=== PATIENT | female | born 1975 | race Caucasian/White ===

== ENCOUNTER 2019-04-15 17:39 | Emergency (ER) | payer MEDICAID ==
[~2019-04-15] VITALS: Ht 157.5 cm; Wt 90.0 kg
[~2019-04-15 17:39] MED LIST: CYCL-1 PO; NO HOME MEDS
[2019-04-15 18:34] LABS: BASOPHILS % (AUTO) 0.2 % (0-1); EOSINOPHILS % (AUTO) 0.2 % (0-6); HEMOGLOBIN 15.4 g/dl (12.0-16.0); LYMPHOCYTES # (AUTO) 0.4 X10'3 (1.1-4.8); LYMPHOCYTES % (AUTO) 2.9 % (21-51); MEAN CORPUSCULAR HEMOGLOBIN 30.7 PG (27.0-31.0); MEAN CORPUSCULAR HGB CONC 34.2 g/dL (33.0-36.5); MEAN CORPUSCULAR VOLUME 89.9 FL (78-98); MEAN PLATELET VOLUME 9.5 FL (7.4-10.4); MONOCYTES # (AUTO) 0.4 X10'3 (0-0.9); MONOCYTES % (AUTO) 2.9 % (2-12); NEUTROPHILS # (AUTO) 12.1 X10'3 (1.8-7.7); NEUTROPHILS % (AUTO) 93.8 % (42-75); PLATELET COUNT 290 X10'3 (140-440); RED BLOOD COUNT 5.01 X10'6 (4.20-5.60); RED CELL DISTRIBUTION WIDTH 13.8 % (11.5-14.5); WHITE BLOOD COUNT 12.9 X10'3 (4.5-11.0)
[2019-04-15 18:47] LABS: ALANINE AMINOTRANSFERASE 32 U/L (12-78); ALBUMIN 3.7 G/DL (3.4-5.0); ALKALINE PHOSPHATASE 80 IU/L (46-116); ANION GAP 15 (8-16); ASPARTATE AMINO TRANSFERASE 20 U/L (10-37); BILIRUBIN,TOTAL 0.9 MG/DL (0.1-1.0); BLOOD UREA NITROGEN 22 MG/DL (7-18); BUN/CREATININE RATIO 28.6 (6.6-38.0); CALCIUM 8.8 MG/DL (8.5-10.1); CHLORIDE 103 MMOL/L (99-107); CREATININE 0.77 MG/DL (0.40-0.90); GLUCOSE 120 MG/DL (70-104); POTASSIUM 3.7 MMOL/L (3.5-5.1); SODIUM 139 MMOL/L (135-145); TOTAL CARBON DIOXIDE 20.6 MMOL/L (24-32); TOTAL PROTEIN 7.5 G/DL (6.4-8.2); eGFR 82 ML/MIN
[2019-04-15] MEDS ORDERED: ondansetron/PF 4mg/2ml inj IV ONE ×2 (19:20→20:10)
--- NOTE | 2019-04-15 19:20 | NUR ---
Patient requesting something to help with nausea, per DOM Monreal ok to give Zofran 4mg IV now.
[2019-04-15 19:40] LABS: CLARITY,URINE CLEAR (Clear); COLOR,URINE YELLOW (Yellow); GLUCOSE, URINE NEGATIVE (Neg); KETONES,URINE >=80 mg/dl (Neg); LEUKOCYTE ESTERASE ,URINE NEGATIVE (Neg); NITRITES, URINE NEGATIVE (Neg); OCCULT BLOOD,URINE SMALL (Neg); PROTEIN,URINE NEGATIVE (Neg); UROBILINOGEN,URINE 0.2 E.U/dL (0.2-1.0)
[2019-04-15 19:42] LABS: URINE HCG NEGATIVE (NEG)
[2019-04-15 19:44] LABS: UA COLLECTION TYPE CLN CATCH MIDSTREAM
[2019-04-15 19:54] LABS: BACTERIA,URINE FEW /HPF (Neg); MUCUS STRANDS FEW /LPF (Neg); RBC,URINE 0-2 /HPF (0-2); SQUAMOUS EPITHELIAL CELL,UR MODERATE /LPF (FEW); WBC,URINE 0-4 /HPF (0-4)
[2019-04-15] MEDS ORDERED: normal saline 1000ML IV soln IVB ONE (20:10)
[2019-04-15] MEDS ORDERED: morphine 4 MG/ML inj SYRINge IV ONE (20:10)
[2019-04-15] MEDS ORDERED: METO-292 PO (21:19)
[2019-04-15 21:56] VITALS: BP 126/75
== END 2019-04-15 21:58 | disposition home or self-care (01) ==
LOC: ER 17:40
DX: R10.31 Right lower quadrant pain (principal); R11.10 Vomiting, unspecified; E66.9 Obesity, unspecified
CPT/HCPCS: 36415; 74176; 80053; 81001; 81025; 85025; 85610; 93005; 96374; 96375; 96376; 99284; J2270; J2405; J7030

== ENCOUNTER 2019-10-09 12:19 | Emergency (ER) | payer OTHER, MEDICAID ==
[~2019-10-09] VITALS: Ht 157.5 cm; Wt 96.0 kg
[~2019-10-09 12:19] MED LIST changes: -CYCL-1 PO; +METO-292 PO
[2019-10-09 12:25] VITALS: BP 162/99
[2019-10-09] MEDS ORDERED: CYCL-1 PO (14:05)
[2019-10-09] MEDS ORDERED: IBUP-1984 PO (14:05)
== END 2019-10-09 14:14 | disposition home or self-care (01) ==
LOC: ER 12:20
DX: S46.911A Strain of unspecified muscle, fascia and tendon at shoulder and upper arm level, right arm, initial encounter (principal); S16.1XXA Strain of muscle, fascia and tendon at neck level, initial encounter; M54.9 Dorsalgia, unspecified; Z79.1 Long term (current) use of non-steroidal anti-inflammatories (NSAID); Z79.899 Other long term (current) drug therapy; X50.1XXA Overexertion from prolonged static or awkward postures, initial encounter; Y93.89 Activity, other specified; Y92.89 Other specified places as the place of occurrence of the external cause; Y99.8 Other external cause status
CPT/HCPCS: 99284

== ENCOUNTER 2020-06-21 10:31 | Emergency (ER) | payer MEDICAID, OTHER ==
[~2020-06-21] VITALS: Ht 154.9 cm; Wt 100.0 kg
[~2020-06-21 10:31] MED LIST changes: +CYCL-1 PO
[2020-06-21 11:06] LABS: BASOPHILS # (AUTO) 0.1 X10'3 (0-0.2); BASOPHILS % (AUTO) 0.9 % (0-1); EOSINOPHILS # (AUTO) 0.2 X10'3 (0-0.9); EOSINOPHILS % (AUTO) 1.6 % (0-6); HEMATOCRIT 42.4 % (35.0-45.0); HEMOGLOBIN 14.6 g/dl (12.0-16.0); LYMPHOCYTES # (AUTO) 2.6 X10'3 (1.1-4.8); LYMPHOCYTES % (AUTO) 26.3 % (21-51); MEAN CORPUSCULAR HEMOGLOBIN 31.4 PG (27.0-31.0); MEAN CORPUSCULAR HGB CONC 34.3 g/dL (33.0-36.5); MEAN CORPUSCULAR VOLUME 91.4 FL (78-98); MEAN PLATELET VOLUME 9.3 FL (7.4-10.4); MONOCYTES # (AUTO) 0.8 X10'3 (0-0.9); MONOCYTES % (AUTO) 7.9 % (2-12); NEUTROPHILS # (AUTO) 6.2 X10'3 (1.8-7.7); NEUTROPHILS % (AUTO) 63.3 % (42-75); PLATELET COUNT 280 X10'3 (140-440); RED BLOOD COUNT 4.63 X10'6 (4.20-5.60); RED CELL DISTRIBUTION WIDTH 13.9 % (11.5-14.5); WHITE BLOOD COUNT 9.8 X10'3 (4.5-11.0)
[2020-06-21 11:21] LABS: ALANINE AMINOTRANSFERASE 23 U/L (12-78); ALBUMIN 3.7 G/DL (3.4-5.0); ALKALINE PHOSPHATASE 68 IU/L (46-116); ANION GAP 5 (8-16); ASPARTATE AMINO TRANSFERASE 14 U/L (10-37); BILIRUBIN,TOTAL 0.5 MG/DL (0.1-1.0); BLOOD UREA NITROGEN 17 MG/DL (7-18); CALCIUM 9.2 MG/DL (8.5-10.1); CHLORIDE 104 MMOL/L (99-107); CREATININE 0.81 MG/DL (0.40-0.90); GLUCOSE 122 MG/DL (70-104); POTASSIUM 3.9 MMOL/L (3.5-5.1); SODIUM 136 MMOL/L (135-145); TOTAL CARBON DIOXIDE 27.3 MMOL/L (24-32); TOTAL PROTEIN 7.5 G/DL (6.4-8.2); eGFR 77 ML/MIN
[2020-06-21 11:29] LABS: MAGNESIUM 2.2 MG/DL (1.5-2.4)
[2020-06-21] MEDS ORDERED: ketorolac tromethamine 15mg/ml inj. IV ONE (12:10)
[2020-06-21 14:13] VITALS: BP 130/74
[2020-06-21] MEDS ORDERED: IBUP-1985 PO (14:30)
== END 2020-06-21 14:57 | disposition home or self-care (01) ==
LOC: ER 10:32
DX: R07.89 Other chest pain (principal); E03.9 Hypothyroidism, unspecified; Z79.899 Other long term (current) drug therapy
CPT/HCPCS: 36415; 71045; 80053; 83735; 83880; 84484; 85025; 93005; 96374; 99285; J1885

== ENCOUNTER → 2021-02-16 | Emergency (ER) | payer MEDICAID ==
[~2021-02-16] VITALS: Ht 154.9 cm; Wt 104.5 kg
[~2021-02-16] MED LIST changes: +IBUP-1985 PO; +METH4TAB81 PO; +ketorolac tromethamine 15mg/ml inj. IM ONE
[2021-02-16 11:26] VITALS: BP 174/78
== END | disposition home or self-care (01) ==
LOC: ER 11:22
DX: S39.012A Strain of muscle, fascia and tendon of lower back, initial encounter (principal); E03.9 Hypothyroidism, unspecified; Z79.899 Other long term (current) drug therapy; X58.XXXA Exposure to other specified factors, initial encounter; Y93.89 Activity, other specified; Y92.89 Other specified places as the place of occurrence of the external cause; Y99.8 Other external cause status
CPT/HCPCS: 96372; 99283; J1885

== ENCOUNTER 2022-05-01 14:11 | Emergency (ER) | payer MEDICAID ==
[~2022-05-01] VITALS: Ht 154.9 cm; Wt 101.4 kg
[~2022-05-01 14:11] MED LIST changes: -ketorolac tromethamine 15mg/ml inj. IM ONE
[2022-05-01 14:14] VITALS: BP 130/71
[2022-05-01] MEDS ORDERED: LIDOcaine 1% 30ml preserv. free vial IJ ONE (15:50)
[2022-05-01] MEDS ORDERED: ibuprofen tablet 400 MG TABLET PO ONE (16:20)
[2022-05-01] MEDS ORDERED: ibuprofen 200mg tablet PO ONE (16:35)
[2022-05-01] MEDS ORDERED: IBUP-1984 PO (17:10)
== END 2022-05-01 17:15 | disposition home or self-care (01) ==
LOC: ER 14:12
DX: S90.411A Abrasion, right great toe, initial encounter (principal); E03.9 Hypothyroidism, unspecified; Z79.899 Other long term (current) drug therapy; W18.39XA Other fall on same level, initial encounter; Y93.89 Activity, other specified; Y92.89 Other specified places as the place of occurrence of the external cause; Y99.8 Other external cause status
CPT/HCPCS: 73660; 99283; J7030; L3260; 99282; A6449

== ENCOUNTER 2022-09-10 16:25 | Emergency (ER) | payer MEDICAID ==
[~2022-09-10] VITALS: Ht 154.9 cm; Wt 100.0 kg
[2022-09-10 16:47] VITALS: BP 177/101
[2022-09-10] MEDS ORDERED: ipratropium/albuterol 3ml nebule NEB ONE (16:55)
[2022-09-10] MEDS ORDERED: normal saline 1000ML IV soln IV ONE (16:55)
[2022-09-10] MEDS ORDERED: methylPREDNISolone sod succ 125mg/2ml vial IV ONE (16:55)
[2022-09-10] MEDS ORDERED: CefTRIAXone 2gm/D5W 50ml BAG 50 ML IV ONE (16:55)
[2022-09-10 17:48] LABS: BASOPHILS # (AUTO) 0.1 X10'3 (0-0.2); BASOPHILS % (AUTO) 0.7 % (0-1); EOSINOPHILS # (AUTO) 0.4 X10'3 (0-0.9); EOSINOPHILS % (AUTO) 3.9 % (0-6); HEMATOCRIT 44.2 % (35.0-45.0); HEMOGLOBIN 14.9 g/dl (12.0-16.0); LYMPHOCYTES # (AUTO) 2.7 X10'3 (1.1-4.8); LYMPHOCYTES % (AUTO) 27.4 % (21-51); MEAN CORPUSCULAR HEMOGLOBIN 30.5 PG (27.0-31.0); MEAN CORPUSCULAR HGB CONC 33.6 g/dL (33.0-36.5); MEAN CORPUSCULAR VOLUME 90.6 FL (78-98); MEAN PLATELET VOLUME 9.6 FL (7.4-10.4); MONOCYTES # (AUTO) 1.1 X10'3 (0-0.9); MONOCYTES % (AUTO) 10.7 % (2-12); NEUTROPHILS # (AUTO) 5.6 X10'3 (1.8-7.7); NEUTROPHILS % (AUTO) 57.3 % (42-75); PLATELET COUNT 298 X10'3 (140-440); RED BLOOD COUNT 4.88 X10'6 (4.20-5.60); RED CELL DISTRIBUTION WIDTH 14.4 % (11.5-14.5); WHITE BLOOD COUNT 9.8 X10'3 (4.5-11.0)
[2022-09-10 18:04] LABS: ALANINE AMINOTRANSFERASE 24 U/L (12-78); ALBUMIN 3.5 G/DL (3.4-5.0); ALBUMIN/GLOBULIN RATIO 0.9 (1.1-1.5); ALKALINE PHOSPHATASE 77 IU/L (46-116); ANION GAP 10 (8-16); ASPARTATE AMINO TRANSFERASE 16 U/L (10-37); BILIRUBIN,TOTAL 0.4 MG/DL (0.1-1.0); BLOOD UREA NITROGEN 16 MG/DL (7-18); BUN/CREATININE RATIO 22.5 (6.6-38.0); CALCIUM 9.2 MG/DL (8.5-10.1); CHLORIDE 104 MMOL/L (99-107); CREATININE 0.71 MG/DL (0.40-0.90); GLUCOSE 87 MG/DL (70-104); POTASSIUM 4.1 MMOL/L (3.5-5.1); SODIUM 140 MMOL/L (135-145); TOTAL CARBON DIOXIDE 25.9 MMOL/L (24-32); TOTAL PROTEIN 7.4 G/DL (6.4-8.2); eGFR 89 ML/MIN
[2022-09-10] MEDS ORDERED: PRED20TA PO (20:35)
[2022-09-10] MEDS ORDERED: ALBU6.7H14 INH (20:35)
[2022-09-10] MEDS ORDERED: AMOX-117 PO (20:35)
--- NOTE | 2022-09-10 21:08 | NUR ---
iv abx started by rn
--- NOTE | 2022-09-10 22:51 | NUR ---
iv dc'd pt being discharged. dressing applied
== END 2022-09-10 22:52 | disposition home or self-care (01) ==
LOC: ER 16:25
DX: J45.909 Unspecified asthma, uncomplicated (principal); Z20.822 Contact with and (suspected) exposure to COVID-19; R06.02 Shortness of breath; R05.9 Cough, unspecified; R07.89 Other chest pain; E03.9 Hypothyroidism, unspecified; Z79.2 Long term (current) use of antibiotics; Z79.899 Other long term (current) drug therapy
CPT/HCPCS: 36415; 71045; 80053; 83605; 84145; 85025; 87040; 87502; 87503; 87635; 93005; 94640; 96365; 96375; 99285; C9803; J0696; J2930; J7030; J7040; 94760

== ENCOUNTER 2023-02-22 19:44 | Emergency (ER) | payer MEDICAID ==
[~2023-02-22] VITALS: Ht 154.9 cm; Wt 101.0 kg
[~2023-02-22 19:44] MED LIST changes: +ALBU6.7H14 INH
[2023-02-22 20:12] LABS: BASOPHILS # (AUTO) 0.1 X10'3 (0-0.2); BASOPHILS % (AUTO) 0.7 % (0-1); EOSINOPHILS # (AUTO) 0.2 X10'3 (0-0.9); EOSINOPHILS % (AUTO) 1.2 % (0-6); HEMATOCRIT 40.4 % (35.0-45.0); HEMOGLOBIN 13.8 g/dl (12.0-16.0); LYMPHOCYTES # (AUTO) 2.4 X10'3 (1.1-4.8); LYMPHOCYTES % (AUTO) 17.6 % (21-51); MEAN CORPUSCULAR HEMOGLOBIN 31.3 PG (27.0-31.0); MEAN CORPUSCULAR HGB CONC 34.1 g/dL (33.0-36.5); MEAN CORPUSCULAR VOLUME 91.9 FL (78-98); MEAN PLATELET VOLUME 9.4 FL (7.4-10.4); MONOCYTES # (AUTO) 1.1 X10'3 (0-0.9); MONOCYTES % (AUTO) 8.3 % (2-12); NEUTROPHILS # (AUTO) 9.9 X10'3 (1.8-7.7); NEUTROPHILS % (AUTO) 72.2 % (42-75); PLATELET COUNT 299 X10'3 (140-440); RED CELL DISTRIBUTION WIDTH 14.2 % (11.5-14.5); WHITE BLOOD COUNT 13.8 X10'3 (4.5-11.0)
[2023-02-22 20:25] LABS: ANION GAP 6 (8-16); BLOOD UREA NITROGEN 11 MG/DL (7-18); BUN/CREATININE RATIO 18.6 (10.0-20.0); CHLORIDE 105 MMOL/L (99-107); CREATININE 0.59 MG/DL (0.40-0.90); GLUCOSE 106 MG/DL (70-104); SODIUM 137 MMOL/L (135-145); TOTAL CARBON DIOXIDE 26.2 MMOL/L (24-32)
[2023-02-22 20:26] LABS: ALANINE AMINOTRANSFERASE 17 U/L (12-78); ALBUMIN 3.2 G/DL (3.4-5.0); ALBUMIN/GLOBULIN RATIO 0.9 (1.1-1.5); ALKALINE PHOSPHATASE 78 IU/L (46-116); ASPARTATE AMINO TRANSFERASE 15 U/L (10-37); BILIRUBIN,TOTAL 0.5 MG/DL (0.1-1.0); CALCIUM 8.6 MG/DL (8.5-10.1); LIPASE 69 U/L (73-393); TOTAL PROTEIN 6.9 G/DL (6.4-8.2); eGFR > 90 ML/MIN
[2023-02-22 22:37] VITALS: BP 136/80
[2023-02-22] MEDS ORDERED: ondansetron 4mg rapidly disintigrating tab PO ONE (22:45)
[2023-02-22] MEDS ORDERED: morphine 4 MG/ML inj SYRINge IM ONE (22:45)
[2023-02-23 00:58] LABS: URINE HCG NEGATIVE (NEG)
[2023-02-23 01:01] LABS: CLARITY,URINE SLIGHTLY CLOUDY (Clear); COLOR,URINE YELLOW (Yellow); GLUCOSE, URINE NEGATIVE (Neg); KETONES,URINE NEGATIVE (Neg); LEUKOCYTE ESTERASE ,URINE NEGATIVE (Neg); NITRITES, URINE NEGATIVE (Neg); OCCULT BLOOD,URINE NEGATIVE (Neg); PROTEIN,URINE NEGATIVE (Neg); UROBILINOGEN,URINE 0.2 E.U/dL (0.2-1.0)
[2023-02-23 01:10] LABS: UA COLLECTION TYPE CLN CATCH MIDSTREAM
[2023-02-23 01:11] LABS: BACTERIA,URINE 1+ /HPF (Neg); MUCUS STRANDS MODERATE /LPF (Neg); RBC,URINE NONE SEEN /HPF (0-2); SQUAMOUS EPITHELIAL CELL,UR MANY /LPF (FEW); WBC,URINE 0-4 /HPF (0-4)
[2023-02-23] MEDS ORDERED: piperacillin/tazo 3.375gm/50ml 50 ML IV ONE (02:25)
[2023-02-23] MEDS ORDERED: ketorolac trometh. 30mg/ml inj. IV ONE (02:30)
[2023-02-23] MEDS ORDERED: metroNIDAZOLE 500mg tablet PO ONE (02:35)
[2023-02-23] MEDS ORDERED: levoFLOXACIN 750MG TABLET PO ONE (02:35)
[2023-02-23] MEDS ORDERED: HYDROcodone/acetaminophen 5mg/325mg tablet PO ONE (02:35)
[2023-02-23] MEDS ORDERED: ondansetron 4mg rapidly disintigrating tab PO ONE (02:35)
[2023-02-23] MEDS ORDERED: LEVO750T68 PO (02:38)
[2023-02-23] MEDS ORDERED: METR-159 PO (02:38)
[2023-02-23] MEDS ORDERED: ONDA8TAB13 PO (02:38)
[2023-02-23] MEDS ORDERED: HYDR-3965 PO (02:39)
== END 2023-02-23 03:02 | disposition home or self-care (01) ==
LOC: ER 19:44
DX: K57.32 Diverticulitis of large intestine without perforation or abscess without bleeding (principal); E03.9 Hypothyroidism, unspecified; Z79.2 Long term (current) use of antibiotics; Z79.899 Other long term (current) drug therapy
CPT/HCPCS: 36415; 74176; 80053; 81001; 81025; 83690; 85025; 96372; 99285; J2270

== ENCOUNTER 2023-05-03 10:52 | Emergency (ER) | payer MEDICAID ==
[~2023-05-03] VITALS: Ht 154.9 cm; Wt 100.0 kg
[~2023-05-03 10:52] MED LIST changes: +ONDA8TAB13 PO
[2023-05-03 13:36] LABS: CLARITY,URINE CLEAR (Clear); COLOR,URINE YELLOW (Yellow); GLUCOSE, URINE NEGATIVE (Neg); KETONES,URINE NEGATIVE (Neg); LEUKOCYTE ESTERASE ,URINE NEGATIVE (Neg); NITRITES, URINE NEGATIVE (Neg); OCCULT BLOOD,URINE NEGATIVE (Neg); PH,URINE 6.5 (4.8-8.0); PROTEIN,URINE NEGATIVE (Neg); UROBILINOGEN,URINE 0.2 E.U/dL (0.2-1.0)
[2023-05-03 13:40] LABS: UA COLLECTION TYPE CLN CATCH MIDSTREAM
[2023-05-03 13:42] LABS: HCG SERUM QL NEGATIVE
[2023-05-03 13:44] LABS: ALANINE AMINOTRANSFERASE 26 U/L (12-78); ALBUMIN 3.6 G/DL (3.4-5.0); ALBUMIN/GLOBULIN RATIO 1.1 (1.1-1.5); ALKALINE PHOSPHATASE 70 IU/L (46-116); ANION GAP 8 (8-16); ASPARTATE AMINO TRANSFERASE 17 U/L (10-37); BILIRUBIN,TOTAL 0.6 MG/DL (0.1-1.0); BLOOD UREA NITROGEN 11 MG/DL (7-18); BUN/CREATININE RATIO 16.4 (10.0-20.0); CALCIUM 9.2 MG/DL (8.5-10.1); CHLORIDE 103 MMOL/L (99-107); CREATININE 0.67 MG/DL (0.40-0.90); GLUCOSE 97 MG/DL (70-104); POTASSIUM 4.1 MMOL/L (3.5-5.1); SODIUM 137 MMOL/L (135-145); TOTAL CARBON DIOXIDE 26.4 MMOL/L (24-32); eGFR > 90 ML/MIN
[2023-05-03 13:48] LABS: BASOPHILS % (AUTO) 0.5 % (0-1); EOSINOPHILS # (AUTO) 0.2 X10'3 (0-0.9); EOSINOPHILS % (AUTO) 2.3 % (0-6); HEMATOCRIT 43.3 % (35.0-45.0); HEMOGLOBIN 14.6 g/dl (12.0-16.0); LYMPHOCYTES # (AUTO) 2.4 X10'3 (1.1-4.8); LYMPHOCYTES % (AUTO) 28.5 % (21-51); MEAN CORPUSCULAR HGB CONC 33.8 g/dL (33.0-36.5); MEAN CORPUSCULAR VOLUME 91.6 FL (78-98); MEAN PLATELET VOLUME 9.7 FL (7.4-10.4); MONOCYTES # (AUTO) 0.7 X10'3 (0-0.9); MONOCYTES % (AUTO) 8.5 % (2-12); NEUTROPHILS % (AUTO) 60.2 % (42-75); PLATELET COUNT 275 X10'3 (140-440); RED BLOOD COUNT 4.72 X10'6 (4.20-5.60); RED CELL DISTRIBUTION WIDTH 14.1 % (11.5-14.5); WHITE BLOOD COUNT 8.3 X10'3 (4.5-11.0)
[2023-05-03 15:35] VITALS: BP 125/76
[2023-05-03] MEDS ORDERED: LORazepam 1 MG tablet PO ONE (17:20)
[2023-05-03] MEDS ORDERED: ondansetron 4mg rapidly disintigrating tab PO ONE (17:20)
[2023-05-03] MEDS ORDERED: meclizine 12.5mg tablet PO ONE (17:20)
[2023-05-03] MEDS ORDERED: MECL-159 PO (17:27)
[2023-05-03] MEDS ORDERED: ONDA4TAB12 PO (17:27)
[2023-05-03] MEDS ORDERED: LORA-269 PO (17:27)
== END 2023-05-03 18:09 | disposition home or self-care (01) ==
LOC: ER 10:52
DX: H81.393 Other peripheral vertigo, bilateral (principal); R42 Dizziness and giddiness; I10 Essential (primary) hypertension; E03.9 Hypothyroidism, unspecified; Z79.899 Other long term (current) drug therapy
CPT/HCPCS: 36415; 80053; 81003; 84484; 84703; 85025; 93005; 99284; J8597

== ENCOUNTER 2024-03-21 18:33 | Emergency (ER) | payer MEDICAID ==
[~2024-03-21] VITALS: Ht 154.9 cm; Wt 100.0 kg
[~2024-03-21 18:33] MED LIST changes: +LORA-269 PO; +MECL-302 PO; +ONDA4TAB12 PO
[2024-03-21 19:47] VITALS: BP 137/99; PULSE 87; TEMP 98; O2SAT 98
[2024-03-21] MEDS ORDERED: ALBU8HFA INH (20:18)
[2024-03-21] MEDS ORDERED: CETI10CA PO (20:18)
[2024-03-21] MEDS ORDERED: PRED20TA PO (20:18)
[2024-03-21 20:25] VITALS: RESP 16
== END 2024-03-21 20:31 | disposition home or self-care (01) ==
LOC: ER 18:34
DX: R05.9 Cough, unspecified (principal); R06.02 Shortness of breath; E03.9 Hypothyroidism, unspecified; Z72.89 Other problems related to lifestyle; Z79.899 Other long term (current) drug therapy
CPT/HCPCS: 71045; 99283

== ENCOUNTER → 2024-05-12 | Outpatient (CLI) | payer MEDICAID ==
[~2024-05-12] MED LIST changes: +CETI10CA PO
== END | disposition home or self-care (01) ==
LOC: MRI 08:35
PROVIDERS: ATTEND Podiatrist Foot & Ankle Surgery
DX: S93.411A Sprain of calcaneofibular ligament of right ankle, initial encounter (principal); M79.671 Pain in right foot; M72.2 Plantar fascial fibromatosis; R60.0 Localized edema; M77.31 Calcaneal spur, right foot; M76.61 Achilles tendinitis, right leg; M25.871 Other specified joint disorders, right ankle and foot; X58.XXXA Exposure to other specified factors, initial encounter; Y92.89 Other specified places as the place of occurrence of the external cause; Y93.89 Activity, other specified; Y99.8 Other external cause status
CPT/HCPCS: 73721

== ENCOUNTER 2024-12-14 11:24 | Emergency (ER) | payer MEDICAID ==
[~2024-12-14] VITALS: Ht 154.9 cm; Wt 106.2 kg
[~2024-12-14 11:24] MED LIST changes: +ONDA-243 PO; +ONDA-245 PO; -ONDA4TAB12 PO; -ONDA8TAB13 PO
[2024-12-14 11:28] VITALS: TEMP 97.6
[2024-12-14] MEDS: diphenhydrAMINE 25mg capsule PO ONE (15:39)
[2024-12-14] MEDS: proCHLORperazine 10 MG/2 ml inj IM ONE (15:39)
[2024-12-14] MEDS: ketorolac trometh 15mg/ml vial 15 MG/ML ML IM ONE (15:39)
[2024-12-14] MEDS ORDERED: LIDO700A32 TOP (16:50)
[2024-12-14 17:00] VITALS: BP 169/100; PULSE 82; RESP 16; O2SAT 99
== END 2024-12-14 17:02 | disposition home or self-care (01) ==
LOC: ER 11:25
DX: G43.909 Migraine, unspecified, not intractable, without status migrainosus (principal); M54.50 Low back pain, unspecified; M25.512 Pain in left shoulder; E03.9 Hypothyroidism, unspecified
CPT/HCPCS: 96372; 99284; J0780; J1885; Q0163

== ENCOUNTER 2025-01-16 01:08 | Emergency (ER) | payer MEDICAID ==
[~2025-01-16] VITALS: Ht 154.9 cm; Wt 95.0 kg
[~2025-01-16 01:08] MED LIST changes: +LIDO700A32 TOP
[2025-01-16] MEDS ORDERED: CODE10LI2 PO ×2 (03:07→11:55)
[2025-01-16] MEDS ORDERED: BENZ-38 PO (03:07)
[2025-01-16] MEDS: benzonatate 100mg capsule PO ONE (03:20)
[2025-01-16 03:22] VITALS: BP 160/80; PULSE 99; RESP 18; TEMP 98.9; O2SAT 97
== END 2025-01-16 03:23 | disposition home or self-care (01) ==
LOC: ER 01:09
DX: J06.9 Acute upper respiratory infection, unspecified (principal); E03.9 Hypothyroidism, unspecified
CPT/HCPCS: 99283

== ENCOUNTER 2025-01-27 13:20 | Emergency (ER) | payer MEDICAID ==
[~2025-01-27] VITALS: Ht 154.9 cm; Wt 105.0 kg
[~2025-01-27 13:20] MED LIST changes: +BENZ-38 PO; +CODE10LI2 PO
[2025-01-27 13:26] VITALS: BP 154/97; PULSE 97; TEMP 98.6; O2SAT 99
[2025-01-27] MEDS ORDERED: GUAI120015 PO (15:08)
[2025-01-27] MEDS ORDERED: ALBU18HF2 INH (15:08)
[2025-01-27] MEDS ORDERED: PRED20TA PO (15:08)
[2025-01-27] MEDS ORDERED: AMOX-117 PO (15:08)
[2025-01-27 15:55] VITALS: RESP 16
== END 2025-01-27 15:56 | disposition home or self-care (01) ==
LOC: ER 13:20
DX: J02.9 Acute pharyngitis, unspecified (principal); R05.9 Cough, unspecified; E03.9 Hypothyroidism, unspecified; Z79.1 Long term (current) use of non-steroidal anti-inflammatories (NSAID); Z79.899 Other long term (current) drug therapy; Z20.822 Contact with and (suspected) exposure to COVID-19
CPT/HCPCS: 36415; 71045; 87502; 87503; 87811; 99284